=== PATIENT | female | born 1960 | race Caucasian/White ===

== ENCOUNTER 2018-02-14 07:57 | Emergency (ER) | payer SELFPAY ==
[2018-02-14] MEDS: IBUPROFEN 800 MG TAB PO (09:52)
== END 2018-02-14 10:11 | disposition home or self-care (01) ==
LOC: E/R 07:57
DX: N64.59 Other signs and symptoms in breast (principal); E11.9 Type 2 diabetes mellitus without complications; Z85.3 Personal history of malignant neoplasm of breast
CPT/HCPCS: 71045; 99283-25